=== PATIENT | female | born 1950 | race Caucasian/White ===

== ENCOUNTER → 2017-12-27 | Outpatient (CLI) | payer OTHER, BC ==
[~2017-12-27] MED LIST: ALPR-411 PO; AMOX500C3 PO; ASPI81TA28 PO; CHOL20007 PO; COD1000C PO; CRAN500C2 PO; HYDR25TA5 PO; IBUP-103 PO; LEVO75TA5 PO; LOSA1TAB38 PO; MAGN400T6 PO; MULT-663 PO; MULT-845 PO; NEBI10TA2 PO; ONDA4TAB46 PO; POTA8CAP6 PO; PREMARIN VAG PV; PROBCAP PO; RANI150T85 PO; SIMV20TA2 PO
[2017-12-27 13:37] LABS: BASO % 0.7 %; BASO ABS # 0.04 K/uL (0-0.2); EOS % 3.1 %; EOS ABS # 0.19 K/uL (0-0.5); HEMATOCRIT 41.1 % (37-47); HEMOGLOBIN 14.1 g/dL (12.0-16.0); IG# 0.02 K/uL (0.00-0.02); LYMPH % 33.1 %; LYMPH ABS # 2.02 K/uL (1.2-3.4); MEAN CORPUSCULAR HEMOGLOBIN 30.5 pg (25-34); MEAN CORPUSCULAR HGB CONC 34.3 g/dl (32-36); MEAN PLATELET VOLUME 11.1 fL (7.4-10.4); MONO % 6.4 %; MONO ABS # 0.39 K/uL (0.11-0.59); NEUT % 56.4 %; NEUT ABS # 3.44 K/uL (1.4-6.5); PLATELET COUNT 178 K/uL (130-400); RED CELL DISTRIBUTION WIDTH SD 41.3 fL (36.4-46.3)
[2017-12-27 13:43] LABS: PTT PATIENT 24.2 SECONDS (21.0-31.0)
--- NOTE | 2017-12-27 13:55 | DIAGNOSTIC IMAGING REPORT ---
TWO VIEW CHEST CLINICAL HISTORY: Preoperative examination. FINDINGS: PA and lateral chest radiographs are obtained. No prior studies are available for comparison at the time of dictation. The patient is status post midline sternotomy. The heart is top normal for projection. The pulmonary vasculature is noncongested. The lungs and pleural spaces are clear. There is no pneumothorax. The bony thorax appears intact. Surgical clips are seen in the upper abdomen. IMPRESSION: No active disease in the chest. Electronically signed by: Jesus Pepper M.D. 12/27/2017 1:53 PM Dictated Date/Time: 12/27/2017 1:51 PM
[2017-12-27 14:03] LABS: ALBUMIN 3.9 gm/dl (3.4-5.0); BLOOD UREA NITROGEN 27 mg/dl (7-18); CALCIUM 9.1 mg/dl (8.5-10.1); CARBON DIOXIDE 29 mmol/L (21-32); CREATININE 0.84 mg/dl (0.60-1.20); GLUCOSE 96 mg/dl (70-99); POTASSIUM 3.5 mmol/L (3.5-5.1); SODIUM 141 mmol/L (136-145)
[2017-12-27 14:40] LABS: HEMOGLOBIN A1C 5.8 % (4.5-5.6)
== END | disposition home or self-care (01) ==
LOC: C.CPL 12:04
PROVIDERS: ATTEND Orthopaedic Surgery
DX: Z01.810 Encounter for preprocedural cardiovascular examination (principal); Z01.811 Encounter for preprocedural respiratory examination; Z01.812 Encounter for preprocedural laboratory examination

== ENCOUNTER 2023-10-13 05:05 | Observation (INO) ==
--- NOTE | 2023-09-07 15:49 | PAT Medication Instructions ---
Medication Instructions Date of Service September 07, 2023 Home Medications Medication Instructions Recorded ondansetron HCl 4 mg tablet 8 mg (2 x 4 mg) PO UD PRN Nausea 02/02/18 (Zofran) And Vomiting #20 tabs Lactobacills gasseri-Bifidobac bifidum,longum 1.5 billion cell capsule (Landpoint) 1 cap PO HS alprazolam 0.5 mg tablet 0.5 - 1 mg PO HS PRN Insomnia amoxicillin 500 mg tablet 500 mg PO UD PRN DENTAL WORK 10 days calcium citrate 250 mg calcium-vitamin D3 5 mcg (200 unit) tablet (Citracal Regular) 2 tab PO BID cholecalciferol (vitamin D3) 125 mcg (5,000 unit) tablet (Vitamin D3) 5,000 unit PO HS hydrochlorothiazide 25 mg tablet 1 tab PO QAM levothyroxine 75 mcg tablet 75 mcg PO QAM losartan 100 mg tablet 100 mg PO QAM magnesium oxide 400 mg PO HS potassium chloride 8 mEq capsule,extended release 8 meq PO BID simvastatin 20 mg tablet 20 mg PO QPM ondansetron HCl 4 mg tablet (Zofran) 8 mg (2 x 4 mg) PO UD PRN Nausea And Vomiting Magnesium Breakthrough 1 tab PO HS acetaminophen 500 mg tablet (Pain Reliever (acetaminophen)) 1,000 mg PO Q6 PRN Pain apixaban 5 mg tablet (Eliquis) 5 mg PO BID cranberry 500 mg capsule 500 mg PO QAM hcdakpcupkrh-pmoqndmx-rcfpjx tablet 1 tab PO HS nebivolol 20 mg tablet (Bystolic) 20 mg PO QAM nitrofurantoin macrocrystal 50 mg capsule (Macrodantin) 50 mg PO QAM spironolactone 25 mg tablet 12.5 mg PO HS Continue as directed amoxicillin 500 mg tablet 500 mg PO UD PRN DENTAL WORK (if needed) nitrofurantoin macrocrystal 50 mg capsule (Macrodantin) 50 mg PO QAM ASK your prescriber and surgeon apixaban 5 mg tablet (Eliquis) 5 mg PO BID (in order to get spinal anesthesia- will need to hold Eliquis/apixaban at least 72 hours prior to surgery) STOP taking 2 weeks before surgery cranberry 500 mg capsule 500 mg PO QAM DO NOT take the morning of surgery calcium citrate 250 mg calcium-vitamin D3 5 mcg (200 unit) tablet (Citracal Regular) 2 tab PO BID hydrochlorothiazide 25 mg tablet 1 tab PO QAM losartan 100 mg tablet 100 mg PO QAM potassium chloride 8 mEq capsule,extended release 8 meq PO BID Take morning of surgery With a small sip of water, OTHERWISE NOTHING TO EAT OR DRINK AFTER MIDNIGHT: levothyroxine 75 mcg tablet 75 mcg PO QAM ondansetron HCl 4 mg tablet (Zofran) 8 mg (2 x 4 mg) PO UD PRN Nausea And Vomiting (if needed) acetaminophen 500 mg tablet (Pain Reliever (acetaminophen)) 1,000 mg PO Q6 PRN Pain (if needed) nebivolol 20 mg tablet (Bystolic) 20 mg PO QAM Take evening before surgery Lactobacills gasseri-Bifidobac bifidum,longum 1.5 billion cell capsule (Landpoint) 1 cap PO HS alprazolam 0.5 mg tablet 0.5 - 1 mg PO HS PRN Insomnia (if needed) calcium citrate 250 mg calcium-vitamin D3 5 mcg (200 unit) tablet (Citracal Regular) 2 tab PO BID cholecalciferol (vitamin D3) 125 mcg (5,000 unit) tablet (Vitamin D3) 5,000 unit PO HS magnesium oxide 400 mg PO HS potassium chloride 8 mEq capsule,extended release 8 meq PO BID simvastatin 20 mg tablet 20 mg PO QPM ondansetron HCl 4 mg tablet (Zofran) 8 mg (2 x 4 mg) PO UD PRN Nausea And Vomiting (if needed) Magnesium Breakthrough 1 tab PO HS acetaminophen 500 mg tablet (Pain Reliever (acetaminophen)) 1,000 mg PO Q6 PRN Pain (if needed) hsxgqqracrnw-ytrjaruy-gikvqc tablet 1 tab PO HS spironolactone 25 mg tablet 12.5 mg PO HS Other Notes If you have any questions please call us at [phone] or [phone] or [phone] or [phone]
--- NOTE | 2023-09-13 11:04 | Anesthesiology Consultation ---
Date of Service September 13, 2023 Assessment & Plan (1) Encounter for pre-operative examination: Plan - will await final report of 14 day cardiac event monitor and cardiology clearance. Optimization form to be faxed to [facility]. - cardiology office visit 09/07/23: "...follow up of atrial fibrillation. Feels more short of breath with going up hill and is wondering if it is because she is in atrial fibrillation...Obtain monitor to determine if rate is controlled...should have sleep study to rule out sleep apnea...Could consider elective cardioversion but she would need to be on Eliquis for 3 weeks prior and 3 weeks after...plans on having knee replacement on October 12..." - Outpatient joint pathway: Per surgeon, patient and her , plan for outpatient joint program. Upon review of chart and discussion with Dr. Villeda, he advised patient remain overnight and is not a recommended candidate for same day joint. Patient and surgeon's office made aware. Patient verbalized understanding and denied questions or concerns. Chart Review Chart Review: Pending: Refer to Additional Notes / Consult section and Patient seen in Pre Admission Testing Teaching & Discussion Pre-Anesthesia Teaching/Discussion Notes: Instructed NPO after midnight before surgery, except medications with 15 cc of water. Medication instructions provided according to the PAT guidelines. History Surgery Operation Date: 10/13/23 07:00 Proposed Procedures p OP: Left Total Knee Arthroplasty, - Baldev Delgado DO s Right Knee Pes Anserine Cortisone Injection - Baldev Delgado DO Height/Weight Height: 5 ft 5.5 in Weight: 70.5 kg Allergies Allergy/AdvReac Type Severity Reaction Status Date / Time fentanyl Allergy Intermediate DEEP Verified 09/07/23 11:52 sedation, severe difficulty waking after receiving med adhesive Allergy Mild band Verified 09/13/23 11:13 aids-rash and blistering morphine AdvReac Intermediate nausea and Verified 09/13/23 11:13 vomiting promethazine [From Phenergan] AdvReac Intermediate drowsiness Verified 09/13/23 11:35 hydrocodone AdvReac Mild nausea and Verified 09/13/23 11:13 vomiting oxycodone AdvReac Mild nausea and Verified 09/13/23 11:13 vomiting Medications Home Medications Medication Instructions Recorded Confirmed Last Taken Lactobacills gasseri-Bifidobac 1 cap PO HS ##0 12/22/17 09/07/23 02/01/18 06:00 bifidum,longum 1.5 billion cell 0ne capsule capsule (panpan) alprazolam 0.5 mg tablet 0.5 - 1 mg PO HS PRN Insomnia #0 12/22/17 09/07/23 02/01/18 08:30 tabs 1 mg po amoxicillin 500 mg tablet 500 mg PO UD PRN DENTAL WORK 10 12/22/17 09/07/23 Unknown days #0 caps calcium citrate 250 mg 2 tab PO BID ##0 12/22/17 09/07/23 01/26/18 22:00 calcium-vitamin D3 5 mcg (200 unit) tablet (Citracal Regular) cholecalciferol (vitamin D3) 125 5,000 unit PO HS 90 days #0 tabs 12/22/17 09/07/23 Unknown mcg (5,000 unit) tablet (Vitamin D3) hydrochlorothiazide 25 mg tablet 1 tab PO QAM ##0 12/22/17 09/07/23 01/31/18 08:00 25 mg po levothyroxine 75 mcg tablet 75 mcg PO QAM 90 days #90 tabs 12/22/17 09/07/23 02/01/18 06:00 75 mcg losartan 100 mg tablet 100 mg PO QAM #0 tabs 12/22/17 09/07/23 01/31/18 08:00 100 mg po magnesium oxide 400 mg PO HS #0 tabs 12/22/17 09/07/23 01/26/18 08:00 400 mg potassium chloride 8 mEq 8 meq PO BID #0 caps 12/22/17 09/07/23 01/27/18 08:00 capsule,extended release 8 meq simvastatin 20 mg tablet 20 mg PO QPM #0 tabs 12/22/17 09/07/23 01/31/18 22:00 20 mg po ondansetron HCl 4 mg tablet 8 mg (2 x 4 mg) PO UD PRN Nausea 02/02/18 09/07/23 Unknown (Zofran) And Vomiting #20 tabs Magnesium Breakthrough 1 tab PO HS 09/07/23 09/07/23 Unknown acetaminophen 500 mg tablet (Pain 1,000 mg PO Q6 PRN Pain 09/07/23 09/07/23 Unknown Reliever (acetaminophen)) apixaban 5 mg tablet (Eliquis) 5 mg PO BID 09/07/23 09/07/23 Unknown cranberry 500 mg capsule 500 mg PO QAM 09/07/23 09/07/23 Unknown caluiaglzmop-trisjafc-urdfhn tablet 1 tab PO HS 09/07/23 09/07/23 Unknown nebivolol 20 mg tablet (Bystolic) 20 mg PO QAM 09/07/23 09/07/23 Unknown nitrofurantoin macrocrystal 50 mg 50 mg PO QAM 09/07/23 09/07/23 Unknown capsule (Macrodantin) spironolactone 25 mg tablet 12.5 mg PO HS 09/07/23 09/07/23 Unknown Past Medical History Medical History (Updated 09/13/23 @ 12:37 by Gudelia Sanabria PA-C) Ascending aorta dilation 3.9 cm per [place] cardiology records Atrial fibrillation per pt is currently in a fib--reason for eliquid bid--follows with Dr. Glenis Barrios in [place] Frequent UTI reason for macrodantin Heart palpitations chronic-denies change or worsening-denies associated dizziness/lightheadedness, chest discomfort or dyspnea History of anesthesia reaction pt states she received Fentanyl (unsure how much) for cardioversion and they had difficulty waking her after, pt states they had to give her 2 doses of Narcan and still had difficulty waking up "they had to take me to the emergency room until I woke up at 530pm" History of benign breast biopsy History of hiatal hernia (07/25/12) s/p Ashtyn fundoplication History of Holter monitoring currently wearing---applied 09/07/23 @ cardiology office starting for 14 days History of kidney stones last episode > 20 years ago Hx of migraines Hyperlipidemia Hypertension controlled, stable per pt Hypothyroidism Lesion of adrenal gland stable "adrenal gland benign lesions" on 2022 CT abdomen pelvis Liver cyst subcentimeter liver cysts, stable per 2022 CT abdomen pelvis Nausea and vomiting after administration of anesthetic agent denies needing scop patch On anticoagulant therapy eliquis bid Valvular heart disease h/o severe mitral valve regurgitation, mitral valve repair with ring, 2005 Patient denies h/o stroke, seizures, heart attack, heart failure, DM, blood clots/DVTs or blood transfusions. Exercise / Class Metabolic Activity II 4-5 Yardwork/Stairs/Walk up hill (SOB with 1 FOS ongoing for several years since cardiac ablation-denies change or worsening-denies chest discomfort) Past Family History Family History Other No family history of adverse response to anesthesia Past Surgical History Surgical History History of adenoidectomy (1957) History of appendectomy unclear-was told was removed during [facility] in 1979 however was documented as visualized on 09/2022 CT abdomen pelvis History of arthroscopy (2006) right knee, partial lateral meniscectomy, partial synovectomy History of bilateral breast reduction surgery (2008) History of bilateral tubal ligation (1977) 2002, 2011 and 2021 History of bladder surgery (2007) sling History of bunionectomy (08/2015) right great toe History of cardiac cath 2005-denies stents. PRIOR TO MVP REPAIR. DIAGNOSTIC ONLY. [facility] History of cardiac radiofrequency ablation x2 @ [facility] --03/14/2020 and 10/07/21 History of cardioversion x2--unsuccessfull 07/22/20 and 04/29/22 @ [place], [place] History of colonoscopy (2020) multiple History of cystoscopy (08/14/21) for recurrent UTIs per pt History of esophagogastroduodenoscopy (EGD) (2020) History of extraction of renal calculus History of heart valve repair 2005- [facility]. MITRAL VALVE REPAIR. History of hysterectomy History of Ashtyn fundoplication (2012) History of surgery (10/01/18) left middle finger "giant cell" removed History of tonsillectomy (1957) History of total right knee replacement (02/01/18) 01/2018 @ [facility] Past Anesthesia History No Family Hx of Anesthesia Complications and Other (see above) History of PONV History of PONV (needs IV medication, denies needing scop patch) and Hx of Motion Sickness (only on boats) Social History Smoking Status: Never smoker Do You Dip or Chew Tobacco: No Hx Alcohol Use: Yes Alcohol type: wine alcohol intake frequency: holidays/special occasions only Hx Substance Use: No substance use type: does not use Review of Systems Patient denies chest pain, snoring, witnessed apneas, fever, chills, cough, or wheezing. Physical Exam Vital Signs Vitals BP 137/82 P 87 TEMP 97.9 SP02 99% on RA RESP 18 Physical Patient resting comfortably in chair in no acute distress, alert and oriented, responding appropriately throughout visit Full cervical extension range of motion without pain TMD 3.5 finger breadths Mallampati Score 2 Dentition: intact, denies chipped or loose teeth, caps/crowns, implants or bridges Lungs: normal respiratory effort. Good air movement, clear throughout to auscultation, no adventitious breath sounds Cardiac: irregularly irregular rhythm, no murmurs noted Carotid arteries: negative bruit bilat Lab Results Anesthesia Preop Results Results Anesthesia Widget: WBC 7.05 K/ul (4.8-10.8) 09/13/23 Hgb 14.1 g/dl (12.0-16.0) 09/13/23 Hct 42.2 % (37.0-47.0) 09/13/23 Plt 227 K/uL (130-400) 09/13/23 Na 140 mmol/L (136-145) 09/13/23 K 4.0 mmol/L (3.5-5.1) 09/13/23 Cl 103 mmol/L (98-107) 09/13/23 CO2 30 mmol/L (21-32) 09/13/23 BUN 20 mg/dl (6-23) 09/13/23 Creat 0.85 mg/dl (0.6-1.2) 09/13/23 Glucose Level 103 mg/dl (70-99(Fasting)) H 09/13/23 PT 11.2 Seconds (9.0-12.0) 09/13/23 PTT 27 Seconds (21-31) 09/13/23 INR 1.0 (0.9-1.1) 09/13/23 HA1c 6.0 % (4.5-5.6) H 09/13/23 Urine Color Yellow 09/13/23 Urine Appearance Clear (Clear) 09/13/23 Urine pH 7.0 (4.5-7.5) 09/13/23 Urine Specific [place] 1.010 (1.000-1.030) 09/13/23 Urine Protein Negative (Negative) 09/13/23 Urine Glucose (UA) Negative (Negative) 09/13/23 Urine Ketones Negative (Negative) 09/13/23 Urine Blood Negative (Negative) 09/13/23 Urine Nitrite Negative (Negative) 09/13/23 Urine Bilirubin Negative (Negative) 09/13/23 Urine Urobilinogen Negative (Negative) 09/13/23 Urine Leukocyte Esterase Negative (Negative) 09/13/23 Blood Type B Positive 09/13/23 Antibody Screen NEGATIVE 09/13/23 Testing Electrocardiogram Date: 09/07/23 Afib, rate 88 bpm RSR V1-nondiagnostic Chest X-Ray Date: 09/13/23 No acute process. Stress Test Date: 12/10/22 Lexiscan MPHR 55% Normal radiotracer uptake across all myocardial segments during both rest and stress imaging. ECG during Lexiscan infusion demonstrates no significant ST-segment deviations or arrhythmias. EF 74%
--- NOTE | 2023-09-20 12:20 | History & Physical Report ---
Date of Service September 20, 2023 date of surgery: 10/13/23 Procedure: Left Total Knee Arthroplasty, Right Knee Pes Anserine Cortisone Injection Surgeon: Baldev Delgado, DO Assessment & Plan (1) Arthritis of knee, left: Plan: Risk and benefits of the procedure were discussed, she would like to proceed with a left total knee arthroplasty at [facility], will also give a right knee cortisone injection into the pes bursa at time of surgery. Will plan on overnight stay in the hospital with discharge home with home health nursing physical therapy. Will resume her anticoagulants beginning postop day #1. Follow-up in the office 2 weeks after her surgery or sooner if she is having issues, she otherwise has no other questions or concerns The risks and benefits have been discussed including, but not limited to, risk of infection, nerve injury, stiffness, loss of motion, failure to improve, etc. Reasonable outcomes and options of treatment were discussed. An explanation of appropriate alternatives to the procedure that may be advantageous were discussed and their risks and benefits, as well as the risks and benefits of not proceeding with treatment. I offered to answer any additional inquiries concerning the treatment involved. All the patient's questions were answered. The patient is agreeable, understanding of the treatment plan and alternatives, and wishes to proceed with the treatment plan. Please note the above document was generated using voice recognition software. It may contain grammatical, syntax or spelling errors. Any formal questions or concerns about the content, text or information contained within the body of this dictation should be directly addressed to the provider for clarification (2) Pes anserinus bursitis of right knee: History of Present Illness Chief Complaint: left knee pain, Right knee pain Primary Care Provider: Jesus Prince Andie is a 73-year-old female who presented for preop evaluation prior to upcoming left total knee replacement and right knee injection. She has longstanding history of left knee pain and is failed conservative measures including cortisone injection as well as viscosupplementation. Her pain is now affecting her daily activities after discussing further care like to proceed with a left total knee replacement. She also has a history of right knee replacement approximately 6 years ago and has had pain located to the pes bursa and would like to proceed with a cortisone injection to the right knee pes bursa. She is unable to take anti-inflammatories secondary to anticoagulation use Allergies Allergy/AdvReac Type Severity Reaction Status Date / Time fentanyl Allergy Intermediate DEEP Verified 09/07/23 11:52 sedation, severe difficulty waking after receiving med adhesive Allergy Mild band Verified 09/13/23 11:13 aids-rash and blistering morphine AdvReac Intermediate nausea and Verified 09/13/23 11:13 vomiting promethazine [From Phenergan] AdvReac Intermediate drowsiness Verified 09/13/23 11:35 hydrocodone AdvReac Mild nausea and Verified 09/13/23 11:13 vomiting oxycodone AdvReac Mild nausea and Verified 09/13/23 11:13 vomiting Home Medications Medication Instructions Recorded Confirmed Type Lactobacills gasseri-Bifidobac 1 cap PO HS ##0 12/22/17 09/07/23 History bifidum,longum 1.5 billion cell capsule (COMARCO) alprazolam 0.5 mg tablet 0.5 - 1 mg PO HS PRN Insomnia #0 12/22/17 09/07/23 History tabs amoxicillin 500 mg tablet 500 mg PO UD PRN DENTAL WORK 10 12/22/17 09/07/23 History days #0 caps calcium citrate 250 mg 2 tab PO BID ##0 12/22/17 09/07/23 History calcium-vitamin D3 5 mcg (200 unit) tablet (Citracal Regular) cholecalciferol (vitamin D3) 125 5,000 unit PO HS 90 days #0 tabs 12/22/17 09/07/23 History mcg (5,000 unit) tablet (Vitamin D3) hydrochlorothiazide 25 mg tablet 1 tab PO QAM ##0 12/22/17 09/07/23 History levothyroxine 75 mcg tablet 75 mcg PO QAM 90 days #90 tabs 12/22/17 09/07/23 History losartan 100 mg tablet 100 mg PO QAM #0 tabs 12/22/17 09/07/23 History magnesium oxide 400 mg PO HS #0 tabs 12/22/17 09/07/23 History potassium chloride 8 mEq 8 meq PO BID #0 caps 12/22/17 09/07/23 History capsule,extended release simvastatin 20 mg tablet 20 mg PO QPM #0 tabs 12/22/17 09/07/23 History ondansetron HCl 4 mg tablet 8 mg (2 x 4 mg) PO UD PRN Nausea 02/02/18 09/07/23 Rx (Zofran) And Vomiting #20 tabs Magnesium Breakthrough 1 tab PO HS 09/07/23 09/07/23 History acetaminophen 500 mg tablet (Pain 1,000 mg PO Q6 PRN Pain 09/07/23 09/07/23 History Reliever (acetaminophen)) apixaban 5 mg tablet (Eliquis) 5 mg PO BID 09/07/23 09/07/23 History cranberry 500 mg capsule 500 mg PO QAM 09/07/23 09/07/23 History llpncacxqrpp-qfqjakoc-qtzguz tablet 1 tab PO HS 09/07/23 09/07/23 History nebivolol 20 mg tablet (Bystolic) 20 mg PO QAM 09/07/23 09/07/23 History nitrofurantoin macrocrystal 50 mg 50 mg PO QAM 09/07/23 09/07/23 History capsule (Macrodantin) spironolactone 25 mg tablet 12.5 mg PO HS 09/07/23 09/07/23 History Past Med/Surg History Medical History Ascending aorta dilation 3.9 cm per [place] cardiology records History of benign breast biopsy Lesion of adrenal gland stable "adrenal gland benign lesions" on 2022 CT abdomen pelvis Liver cyst subcentimeter liver cysts, stable per 2022 CT abdomen pelvis Hypertension controlled, stable per pt Hyperlipidemia On anticoagulant therapy eliquis bid Nausea and vomiting after administration of anesthetic agent denies needing scop patch History of anesthesia reaction pt states she received Fentanyl (unsure how much) for cardioversion and they had difficulty waking her after, pt states they had to give her 2 doses of Narcan and still had difficulty waking up "they had to take me to the emergency room until I woke up at 530pm" History of Holter monitoring currently wearing---applied 09/07/23 @ cardiology office starting for 14 days Atrial fibrillation per pt is currently in a fib--reason for eliquid bid--follows with Dr. Glenis Barrios in [place] Frequent UTI reason for macrodantin Heart palpitations chronic-denies change or worsening-denies associated dizziness/lightheadedness, chest discomfort or dyspnea Hx of migraines History of hiatal hernia (07/25/12) s/p Ashtyn fundoplication History of kidney stones last episode > 20 years ago Hypothyroidism Valvular heart disease h/o severe mitral valve regurgitation, mitral valve repair with ring, 2005 Surgical History History of cystoscopy (08/14/21) for recurrent UTIs per pt History of bilateral breast reduction surgery (2008) History of bladder surgery (2007) sling History of total right knee replacement (02/01/18) 01/2018 @ [facility] History of cardioversion x2--unsuccessfull 07/22/20 and 04/29/22 @ [place], [place] History of cardiac radiofrequency ablation x2 @ [facility] --03/14/2020 and 10/07/21 History of surgery (10/01/18) left middle finger "giant cell" removed History of hysterectomy History of bilateral tubal ligation (1977) 2002, 2011 and 2021 History of bunionectomy (08/2015) right great toe History of arthroscopy (2006) right knee, partial lateral meniscectomy, partial synovectomy History of extraction of renal calculus History of Ashtyn fundoplication (2012) History of esophagogastroduodenoscopy (EGD) (2020) History of colonoscopy (2020) multiple History of appendectomy unclear-was told was removed during [facility] in 1979 however was documented as visualized on 09/2022 CT abdomen pelvis History of tonsillectomy (1957) History of adenoidectomy (1957) History of heart valve repair 2005- [facility]. MITRAL VALVE REPAIR. History of cardiac cath 2005-denies stents. PRIOR TO MVP REPAIR. DIAGNOSTIC ONLY. 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 Required: No Beliefs That Will Affect Care: None Current Living Situation: Significant Other Feels Safe at Home: Yes Assistive Devices: None Review of Systems Review of Systems: All systems reviewed & are unremarkable except as noted in HPI & below Constitutional: no fever, no chills and no sweats Respiratory: no cough and no dyspnea Cardiovascular: no chest pain, no dyspnea and no orthopnea Gastrointestinal: no abdominal pain, no nausea and no vomiting Musculoskeletal: as per Subjective / HPI Physical Exam Physical Exam: HT: 5ft 5in WT: 70.5kg Constitutional: WD/WN, vitals as above no acute distress Respiratory: normal respiratory effort, lungs clear to auscultation no respiratory distress, no labored breathing and does not use accessory muscles Cardiovascular: Rate/Rhythm: + irregularly irregular Gastrointestinal (Abdomen): normal bowel sounds, soft, nontender, no hepato splenomegaly Musculoskeletal: Knee: + knee abnormal to inspection (LEFT KNEE), + effusion (+1 effusion), + limited ROM of knee (ROM 0/3/110), + knee ROM with crepitation, + joint line tenderness (medial joint line) and + Shola's sign positive; no deformity, no skin erythema, no ecchymosis, no valgus laxity, no varus laxity, anterior drawer test negative, Sb's sign negative and pivot shift test negative Right Knee: well healed surgical incision, tenderness along pes bursa Results & Data Results & Data Diagnostic Findings Left Knee: 4 views of the left knee show degenerative changes tricompartmentally with joint space narrowing osteophyte formation subchondral sclerosis. No acute findings noted
[2023-10-13] MEDS: LR 500ML BOLUS, THEN 15ML/HR IV SCH (06:00)
[2023-10-13] MEDS ORDERED: ROPIVACAINE 0.5% 5 MG/ML 30 ML VIAL ONE (06:12)
[2023-10-13] MEDS: LR 60ML/HR IV SCH (06:24)
[2023-10-13] MEDS: GABAPENTIN 300 MG CAP PO SCH (06:25)
[2023-10-13] MEDS: FAMOTIDINE 20 MG TAB PO SCH (06:25)
[2023-10-13] MEDS: METOCLOPRAMIDE HCL 10 MG TABLET PO SCH (06:25)
[2023-10-13] MEDS: ACETAMINOPHEN 500 MG TAB PO SCH ×2 (06:25→13:03)
[2023-10-13] MEDS: CeleBREX 200 MG CAP PO SCH (06:25)
[2023-10-13] MEDS: dexAMETHasone**PF** 10 MG/ML VIAL IV SCH (06:26)
[2023-10-13] MEDS ORDERED: MIDAZOLAM HCL 1 MG/ML 2ML VIAL ONE (06:36)
[2023-10-13] MEDS ORDERED: DROPERIDOL 5 MG/2 ML VIAL IV PRN (06:48)
[2023-10-13] MEDS ORDERED: KETOROLAC 30 MG/ML VIAL IV PRN (06:48)
[2023-10-13] MEDS ORDERED: LABETALOL HCL IV 5 MG/ML 20ML IV PRN (06:48)
[2023-10-13] MEDS ORDERED: ATROPINE SULFATE 0.1 MG/ML 10ML SYR IV PRN (06:48)
[2023-10-13] MEDS ORDERED: ONDANSETRON INJ 2 MG/ML 2 ML VIAL IV PRN (06:48)
--- NOTE | 2023-10-13 06:57 | History & Physical Bridge Note ---
Date of Service October 13, 2023 History & Physical Bridge Note I have examined the patient, reviewed the History & Physical and in the interval since the performance of the History & Physical I have noted the following changes of clinical significance: no changes noted
[2023-10-13] MEDS: TRANEXAMIC ACID 1,000 MG **IV Pre-op IV SCH (07:02)
[2023-10-13] MEDS: ceFAZolin 2000MG 2,000 MG/15 ML SYR IV SCH (07:13)
[2023-10-13] MEDS ORDERED: fentaNYL citrate PF 100 MCG/2 ML VIAL ONE ×2 (07:16→08:28)
[2023-10-13] MEDS ORDERED: DROPERIDOL 5 MG/2 ML VIAL ONE (07:19)
[2023-10-13] MEDS: BUPIVACAINE 0.25% PF 30 ML VIAL ONE (07:21)
[2023-10-13] MEDS: LIDOCAINE 1% LOCAL 20 ML VIAL ONE (07:21)
[2023-10-13] MEDS: methylPREDNISolone acetate 80 MG/ML VIAL ONE (07:21)
--- NOTE | 2023-10-13 08:11 | Operative Report ---
Post Operative Report Pre & Post Diagnosis Operation Date: 10/13/23 07:00 Pre-Op Diagnosis: Left Knee Osteoarthritis, Right Knee Pez anserine bursitis Post-Op Diagnosis: Left Knee Osteoarthritis, Right Knee Pez anserine bursitis I identified the patient and participated in the time-out.: Yes Procedure Operation Date: 10/13/23 07:00 Actual Procedures p Left Total Knee Arthroplasty,Utilizing [employer] journey 2 patient- matched total knee arthroplasty size femur 5 tibia 3 poly 13 patella 29 oval(Left) - DO pushpa Marley Right Knee Pes Anserine InjectionWith 1 cc quarter percent plain Marcaine and 1 cc 1% lidocaine 80 mg Depo-Medrol(Right) - Baldev Delgado DO Surgeon Baldev Delgado DO [facility] Burt BOLANOS Estimated Blood Loss 5 Findings Consistent with Post-Op Diagnosis Patient presents with severe end-stage tricompartmental degenerative joint disease not on the responded to to conservative management with eburnated [id number] marginal osteophytes subchondral cystic changes eburnated [id number]-[id number] and moderate to large effusion Specimens Bone and cartilage Drains Medium bore Hemovac Anesthesia Type MAC Spinal Regional Complications none Disposition Accompanied Patient To Recovery: No Disposition: Recovery Room Indications Patient presents with severe end-stage tricompartmental DJD after failed attem pted conservative management getting physical therapy anti-inflammatories relative rest activity modification corticosteroid injection viscosupplementation Description of Procedure After proper prepping and draping of the left lower extremity anterior midline incision was made over the region of the extensor extensor mechanism after meticulous hemostasis was obtained and maintained in subcutaneous tissues a medial parapatellar incision was made The patella was subluxed lateralward the medial lateral gutter were cleaned from any hypertrophic synovitis and scar tissue of the distal femoral block was placed and the distal femoral osteotomy cut was made subsequently the chamfers anterior and posterior osteotomy cuts were made utilizing the 4-in-1 block the tibia was subsequently subluxed anteriorward medial and ateral meniscal remnants were excised in their entirety remnants of the anterior and posterior cruciate ligaments were excised in their entirety excellent exposure of the proximal tibia was obtained the tibial osteotomy guide was placed on the proximal tibial osteotomy cut was made once again the knee was irrigated with copious amounts of sterile saline solution the patella was subsequently everted lateralward thickened scar tissue around the patella was removed the patella was subsequently cut utilizing a freehand technique and was drilled prepared for final preparation and placement of patella socially flexion-extension gaps were checked and the equal and symmetric trials were placed to the appropriate femoral and tibial trials with poly-spacer being placed for equal flexion and extension gaps and full range of motion including extension to 0 and flexion to 140 the trial components after having been taken to recovery range of motion was subsequently removed meticulous hemostasis was obtained and maintained subsequently a knee block injection of joint cocktail including ropivacaine 0.5% 150 mg. Bupivacaine 0.5% epinephrine 1-200,030 mL's toradol 30 mg dexamethasone 4 mg ketamine 10 mg clonidine 100 micrograms normal saline solution 30 mg was infiltrated into the soft tissues of the posterior knee medial lateral gutters and periosteal synovium special attention was paid to protect neurovascular structures at all times subsequently trial components having been removed the knee was irrigated with sterile saline solution. debris was removed the proximal tibia was subsequently prepared and was made ready for the placement of the tibial component tibial component was also cemented and tamped into position the femoral component was subsequently placed and cemented in the position the patellar component was subsequently cemented in position because hemostasis once again obtained and maintained wound having been thoroughly irrigated with debridement and debridement lavage was performed as well as a medial parapatellar incision closed with #1 Vicryl in interrupted fashion subcutaneous was closed with #2 Vicryl skin was closed with skin clips. PA-C was necessary for prepping and drapping as well as wound closure of deep fascia Sub cutaneous tissue and skin and was necessary for the case. A sterile compressive dressing was placed patient was taken to recovery in stable condition of report dictated by Danny I attest to the content of the Intraoperative Record and any orders documented therein. Any exceptions are noted below.Due to the complex nature of the procedure, the entire surgery was performed with the operational assistance of LUIS MIGUEL Kelly. The health education assistant, under direct supervision, was involved in the actual performance of all aspects of the surgical procedure including hemostasis, tissue retraction and incision, instrument management, patient positioning, and wound closure.The right knee pes bursa and that was injected with a mixture of 1 cc of Marcaine quarter percent 1 cc 1% plain lidocaine and 80 mg Depo-Medrol into the Pez anserine bursa under sterile conditions I attest to the content of the Intraoperative Record and any orders documented therein. Any exceptions are noted below.
[2023-10-13] MEDS: ROPIVACAINE 0.5% HCL/PF 246 MG, Ketorolac (*for OR use only*) 30 MG, EPINEPHrine 30MG/3... INFIL SCH (08:14)
[2023-10-13] MEDS: ORTHO JOINT ANESTHETIC ONE (08:15)
[2023-10-13] MEDS ORDERED: SUGAMMADEX SODIUM 200 MG/2 ML VIAL IV ONE (08:15)
[2023-10-13] MEDS: TRANEXAMIC ACID 1,000 MG **IV Intra-op IV SCH (08:15)
[2023-10-13] MEDS ORDERED: KETOROLAC 30 MG/ML VIAL ONE (08:15)
[2023-10-13] MEDS ORDERED: PROPOFOL IV EMULSION 10 MG/ML 100 ML VIAL IV ONE (08:28)
[2023-10-13] MEDS ORDERED: MEPERIDINE HCL 25 MG/ML CARP/VIAL IV PRN (08:54)
[2023-10-13] MEDS: HYDROmorphone INJ 1 MG/ML SYRINGE IV PRN (09:15)
--- NOTE | 2023-10-13 10:16 | Anesthesiology Progress Note ---
Date of Service October 13, 2023 Anesthesia Post Procedure Vital Signs Vital Signs: Temp Pulse Pulse Resp BP Pulse Ox O2 Del Method 10/13/23 09:30 36.5 C 93 H 16 141/85 H 97 Room Air 10/13/23 09:25 36.5 C 88 14 135/90 99 Room Air 10/13/23 09:15 98 H 14 141/91 H 96 Oxymask 10/13/23 09:05 97 H 15 148/83 H 94 Oxymask 10/13/23 08:55 97 H 15 141/94 H 98 Oxymask 10/13/23 08:49 36.3 C L 86 12 144/72 H 94 Oxymask 10/13/23 05:59 36.4 C L 85 18 135/101 H 99 Room Air O2 Flow Rate 10/13/23 09:30 10/13/23 09:25 10/13/23 09:15 3 10/13/23 09:05 3 10/13/23 08:55 5 10/13/23 08:49 5 10/13/23 05:59 Transfer of Care Handoff Completed per policy Notes Mental Status: alert / awake / arousable Patient Amnestic to Procedure: Yes Nausea / Vomiting: adequately controlled Pain: adequately controlled Airway Patency, RR, SpO2: stable & adequate BP & HR: stable & adequate Hydration State: stable & adequate Anesthetic Complications: no major complications apparent
[2023-10-13] MEDS ORDERED: FLUMAZENIL 0.1 MG/1 ML 10 ML VIAL IV ONE (10:20)
[2023-10-13] MEDS ORDERED: bisacodyL 10 MG SUPP PR PRN (11:02)
[2023-10-13] MEDS ORDERED: diphenhydrAMINE Capsule 25 MG CAP PO PRN (11:02)
[2023-10-13] MEDS ORDERED: NALOXONE HCL 0.4 MG/1 ML VIAL/CARP IV PRN (11:02)
[2023-10-13] MEDS ORDERED: METOCLOPRAMIDE HCL INJ 5 MG/ML 2 ML VIAL IV PRN (11:02)
[2023-10-13] MEDS ORDERED: traMADol HCL 50 MG TABLET PO PRN (11:02)
[2023-10-13] MEDS ORDERED: MAGNESIUM HYDROXIDE SUSP 30 ML UDC PO PRN (11:02)
[2023-10-13] MEDS: SODIUM CHLORIDE 0.9% 1,000 ML IV SCH (11:20)
[2023-10-13] MEDS ORDERED: LEVOTHYROXINE SODIUM 75 MCG TABLET PO SCH (11:30)
[2023-10-13] MEDS: DOCUSATE SODIUM 100 MG CAP PO SCH (13:01)
[2023-10-13] MEDS: CALCIUM 600MG + VIT D 400 IU TAB PO SCH (13:01)
[2023-10-13] MEDS: MULTIVITAMIN TAB PO SCH (13:02)
--- NOTE | 2023-10-13 13:06 | XRay Report ---
XR knee LT 1 or 2V routine CLINICAL HISTORY: Postoperative evaluation. COMPARISON: None FINDINGS: Alignment of the total left knee arthroplasty is anatomic. There is no periprosthetic frac ture or unexpected radiopaque foreign body. There are skin tess and a surgical drain. IMPRESSION: Expected findings following total left knee arthroplasty. ACT 112: Negative or not required by law. Electronically signed by: Amos Espinoza M.D. 10/13/2023 1:04 PM
--- NOTE | 2023-10-13 13:11 | Hospitalist Consultation ---
Date of Consultation October 13, 2023 Assessment & Plan (1) Hypertension: (2) Hyperlipidemia: (3) Atrial fibrillation: (4) Hypothyroidism: Plan 73 yo female with h/o HTN, Afib, hyperlipidemia, hypothyroidism admitted for elective left knee arthroplasty, tolerated surgery well # left knee arthroplasty , PT, pain control , Eliquis on Day 1 after surgery # Afib, rate control , continue Metoprolol 100 mg bid, restart Eliquis as per ortho # HTN stable , continue home meds Losartan, HCTZ, Metoprolol # hyperlipidemia continue statins # hypothyroidism, continue Synthroid History of Present Illness Reason for Consultation: medical managment Requesting Physician: Baldev Delgado Attending Physician: Baldev Delgado, DO History of Present Illness &3 yo female with h/o OA, Afib, s/p ablation , on Eliquis, HTN, hyperlipidemia, hypothyroidism, ascending aorta dilation admitted for left knee arthroplasty, tolerated surgery well, reports minimal left knee pain,denies chest pain, SOB, palpitations, nausea, vomiting, abdominal pain, dysuria, constipation , buster ated lunch Allergies Allergy/AdvReac Type Severity Reaction Status Date / Time fentanyl Allergy Intermediate DEEP Verified 10/13/23 05:40 sedation, severe difficulty waking after receiving med adhesive Allergy Mild band Verified 10/13/23 05:40 aids-rash and blistering morphine AdvReac Intermediate nausea and Verified 10/13/23 05:40 vomiting promethazine [From Phenergan] AdvReac Intermediate drowsiness Verified 10/13/23 05:40 hydrocodone AdvReac Mild nausea and Verified 10/13/23 05:40 vomiting oxycodone AdvReac Mild nausea and Verified 10/13/23 05:40 vomiting Home Medications Medication Instructions Recorded Confirmed Type Lactobacills gasseri-Bifidobac 1 cap PO HS ##0 12/22/17 10/13/23 History bifidum,longum 1.5 billion cell capsule (AllergEase) alprazolam 0.5 mg tablet (Xanax) 0.5 - 1 mg PO HS PRN Insomnia #0 12/22/17 10/13/23 History tabs amoxicillin 500 mg tablet 500 mg PO UD PRN DENTAL WORK 10 12/22/17 10/13/23 History days #0 caps calcium citrate 250 mg 2 tab PO BID ##0 12/22/17 10/13/23 History calcium-vitamin D3 5 mcg (200 unit) tablet (Citracal Regular) cholecalciferol (vitamin D3) 125 5,000 unit PO HS 90 days #0 tabs 12/22/17 10/13/23 History mcg (5,000 unit) tablet (Vitamin D3) hydrochlorothiazide 25 mg tablet 1 tab PO QAM ##0 12/22/17 10/13/23 History levothyroxine 75 mcg tablet 75 mcg PO QAM 90 days #90 tabs 12/22/17 10/13/23 History losartan 100 mg tablet 100 mg PO QAM #0 tabs 12/22/17 10/13/23 History magnesium oxide 400 mg PO HS #0 tabs 12/22/17 10/13/23 History potassium chloride 8 mEq 8 meq PO BID #0 caps 12/22/17 10/13/23 History capsule,extended release simvastatin 20 mg tablet 20 mg PO QPM #0 tabs 12/22/17 10/13/23 History ondansetron HCl 4 mg tablet 8 mg (2 x 4 mg) PO UD PRN Nausea 02/02/18 10/13/23 Rx (Zofran) And Vomiting #20 tabs Magnesium Breakthrough 1 tab PO HS 09/07/23 10/13/23 History acetaminophen 500 mg tablet (Pain 1,000 mg PO Q6 PRN Pain 09/07/23 10/13/23 History Reliever (acetaminophen)) apixaban 5 mg tablet (Eliquis) 5 mg PO BID 09/07/23 10/13/23 History pjmfxcyxcpdg-nvhrrmqc-tuhkuz tablet 1 tab PO HS 09/07/23 10/13/23 History nebivolol 20 mg tablet (Bystolic) 20 mg PO QAM 09/07/23 10/13/23 History nitrofurantoin macrocrystal 50 mg 50 mg PO QAM 09/07/23 10/13/23 History capsule (Macrodantin) spironolactone 25 mg tablet 12.5 mg PO HS 09/07/23 10/13/23 History Patient History Medical History (Updated 10/13/23 @ 05:39 by Kylah Marie RN) Skin cancer (melanoma) new- right mid cristobal- removal Ascending aorta dilation 3.9 cm per [place] [facility] records History of benign breast biopsy Lesion of adrenal gland stable "adrenal gland benign lesions" on 2022 CT abdomen pelvis Liver cyst subcentimeter liver cysts, stable per 2022 CT abdomen pelvis Hypertension controlled, stable per pt Hyperlipidemia On anticoagulant therapy eliquis bid Nausea and vomiting after administration of anesthetic agent denies needing scop patch History of anesthesia reaction pt states she received Fentanyl (unsure how much) for cardioversion and they had difficulty waking her after, pt states they had to give her 2 doses of Narcan and still had difficulty waking up "they had to take me to the emergency room until I woke up at 530pm" History of Holter monitoring currently wearing---applied 09/07/23 @ cardiology office starting for 14 days Atrial fibrillation per pt is currently in a fib--reason for eliquid bid--follows with Dr. Glenis Barrios in [place] Frequent UTI reason for macrodantin Surgical History History of cystoscopy (08/14/21) for recurrent UTIs per pt History of bilateral breast reduction surgery (2008) History of bladder surgery (2007) sling History of cardioversion x2--unsuccessfull 07/22/20 and 04/29/22 @ [place], [place] History of cardiac radiofrequency ablation x2 @ [facility] --03/14/2020 and 10/07/21 History of surgery (10/01/18) left middle finger "giant cell" removed History of extraction of renal calculus History of Ashtyn fundoplication (2012) History of esophagogastroduodenoscopy (EGD) (2020) History of colonoscopy (2020) multiple History of appendectomy unclear-was told was removed during BENIG[facility] in 1979 however was documented as visualized on 09/2022 CT abdomen pelvis Family History Other No family history of adverse response to anesthesia Social History Smoking Status: Never smoker Second Hand Exposure: No; Do You Dip or Chew Tobacco: No; Tobacco Cessation Education Requested by Patient: No Hx Alcohol Use: Yes Alcohol type: wine Hx Substance Use: No Preferred Language: Slovenian Communication Ability: Effective 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: No Beliefs That Will Affect Care: None Current Living Situation: Significant Other Other Information That Helps Us Care for You: No Feels Safe at Home: Yes Safety Concerns: Feels Safe At This Time Assistive Devices: None Review of Systems Review of Systems: All systems reviewed & are unremarkable except as noted in HPI & below Physical Exam Physical Exam: head atraumatic, normocephalic, eyes sclera anicteric neck supple, no JVD chest CTA b/l Heart irregularly irregular, tachycardic abdomen soft, nt, nd, BS present extremities left knee dressed, pulses present, no cyanosis neuro AAO times 3 Results & Data Results & Data Vital Signs (Past 12 Hours) Vital Signs Temp Pulse Pulse Resp BP Pulse Ox O2 Del Method 10/13/23 12:58 36.6 C 90 16 113/71 94 Room Air 10/13/23 12:09 36.7 C 90 17 132/86 93 Room Air 10/13/23 11:01 36.6 C 89 16 136/84 92 Room Air 10/13/23 10:35 36.7 C 91 H 17 131/88 90 Room Air 10/13/23 09:30 36.5 C 93 H 16 141/85 H 97 Room Air 10/13/23 09:25 36.5 C 88 14 135/90 99 Room Air 10/13/23 09:15 98 H 14 141/91 H 96 Oxymask 10/13/23 09:05 97 H 15 148/83 H 94 Oxymask 10/13/23 08:55 97 H 15 141/94 H 98 Oxymask 10/13/23 08:49 36.3 C L 86 12 144/72 H 94 Oxymask 10/13/23 05:59 36.4 C L 85 18 135/101 H 99 Room Air O2 Flow Rate 10/13/23 12:58 10/13/23 12:09 10/13/23 11:01 10/13/23 10:35 10/13/23 09:30 10/13/23 09:25 10/13/23 09:15 3 10/13/23 09:05 3 10/13/23 08:55 5 10/13/23 08:49 5 10/13/23 05:59 Medications Administered Current Inpatient Medications Acetaminophen (Acetaminophen 500 Mg Tab) 1,000 mg PO Q8 ELIE Stop: 11/12/23 13:59 Last Admin: 10/13/23 13:03 Dose: 1,000 mg Alprazolam (Alprazolam 0.5 Mg Tablet) 0.5 mg PO HS PRN PRN Reason: Insomnia Stop: 11/12/23 11:01 Apixaban (Apixaban 5 Mg Tablet) 5 mg PO BID [facility] Stop: 11/13/23 08:59 Bisacodyl (Bisacodyl 10 Mg Supp) 10 mg MI DAILY PRN PRN Reason: Constipation Stop: 11/12/23 11:01 Calcium/Vitamin D (Calcium 600mg + Vit D 400 Iu Tab) 1 tab PO BID ELIE Stop: 11/12/23 11:01 Last Admin: 10/13/23 13:01 Dose: 1 tab Diphenhydramine HCl (Diphenhydramine Capsule 25 Mg Cap) 25 mg PO Q8H PRN PRN Reason: Itching Stop: 11/12/23 11:01 Docusate Sodium (Docusate Sodium 100 Mg Cap) 100 mg PO BID [facility] Stop: 11/12/23 11:59 Last Admin: 10/13/23 13:01 Dose: 100 mg Hydrochlorothiazide (Hydrochlorothiazide 25 Mg Tab) 25 mg PO QAM [facility] Stop: 11/13/23 08:59 Sodium Chloride (Nss) 1,000 mls @ 100 mls/hr IV .Q10H [facility] Stop: 10/14/23 06:00 Last Admin: 10/13/23 11:20 Dose: 100 mls/hr Cefazolin Sodium (Ancef 1000mg) 1,000 mg in 7.5 mls @ 2.5 mls/min IV Q8H [facility]; Protocol Stop: 10/13/23 23:02 Levothyroxine Sodium (Levothyroxine Sodium 75 Mcg Tablet) 75 mcg PO DAILYBB [facility] Stop: 11/13/23 06:29 Losartan Potassium (Losartan Potassium 50 Mg Tab) 100 mg PO QAM [facility] Stop: 11/12/23 11:59 Last Admin: 10/13/23 13:20 Dose: 100 mg Magnesium Hydroxide (Magnesium Hydroxide Susp 30 Ml Udc) 30 ml PO Q6H PRN PRN Reason: Constipation Stop: 11/12/23 11:01 Magnesium Oxide (Magnesium Oxide 400 Mg Tab) 400 mg PO HS [facility] Stop: 11/12/23 20:59 Meperidine HCl (Meperidine Hcl 25 Mg/Ml Carp/Vial) 25 mg IV Q4 PRN PRN Reason: Pain Stop: 10/27/23 08:53 Metoclopramide HCl (Metoclopramide Hcl Inj 5 Mg/Ml 2 Ml Vial) 10 mg IV Q6H PRN PRN Reason: Nausea And Vomiting Stop: 11/12/23 11:01 Metoprolol Tartrate (Metoprolol Tartrate 100 Mg Tab) 100 mg PO BID ELIE Stop: 11/13/23 08:59 Multivitamins (Multivitamin Tab) 1 tab PO QAM ELIE Stop: 11/12/23 11:59 Last Admin: 10/13/23 13:02 Dose: 1 tab Naloxone HCl (Naloxone Hcl 0.4 Mg/1 Ml Vial/Carp) 0.1 mg IV Q5M PRN PRN Reason: Oversedation/Resp Depression Stop: 11/12/23 11:01 Ondansetron HCl (Ondansetron Inj 2 Mg/Ml 2 Ml Vial) 4 mg IV Q6H PRN PRN Reason: Nausea And Vomiting Stop: 11/12/23 11:01 Potassium Chloride (Potassium Chloride 10 Meq Tabcr) 10 meq PO BID ELIE Stop: 11/12/23 11:59 Last Admin: 10/13/23 13:19 Dose: 10 meq Sennosides (Senna 8.6 Mg Tab) 17.2 mg PO HS ELIE Stop: 11/12/23 20:59 Simvastatin (Simvastatin 20 Mg Tab) 20 mg PO QPM ELIE Stop: 11/12/23 20:59 Spironolactone (Spironolactone 12.5 Mg Tab) 12.5 mg PO HS ELIE Stop: 11/13/23 20:59 Tramadol HCl (Tramadol Hcl 50 Mg Tablet) 50 - 100 mg PO Q4H PRN PRN Reason: Pain & Pre PT Stop: 11/12/23 11:01 Vitamin D (Cholecalciferol 125 Mcg (5,000 Units) Tab) 125 mcg PO HS ELIE Stop: 11/12/23 20:59 PG Care Time/CCT Total # of Minutes Spent Total Time Spent with Patient: Total time spent is greater than 50% in coordination of care (as documented) at patient's floor/unit and/or counseling patient: Coding Level of Care Code 05047 IN/OBS CONSULT LVL 4,60M Diagnoses Hypertension I10 Hyperlipidemia E78.5 Atrial fibrillation I48.91 Hypothyroidism E03.9
[2023-10-13] MEDS: POTASSIUM CHLORIDE 10 MEQ TABCR PO SCH (13:19)
[2023-10-13] MEDS: LOSARTAN POTASSIUM 50 MG TAB PO SCH (13:20)
[2023-10-13] MEDS: ceFAZolin 1000MG 1,000 MG/7.5 ML SYR IV SCH (14:50)
[2023-10-13] MEDS: ONDANSETRON INJ 2 MG/ML 2 ML VIAL IV PRN (15:48)
[2023-10-13] MEDS ORDERED: CHOLECALCIFEROL 125 MCG (5,000 UNITS) TAB PO SCH (21:00)
[2023-10-13] MEDS: CHOLECALCIFEROL 125 MCG (5,000 UNITS) TAB PO SCH (21:01)
[2023-10-13] MEDS: MAGNESIUM OXIDE 400 MG TAB PO SCH (21:02)
[2023-10-13] MEDS: SIMVASTATIN 20 MG TAB PO SCH (21:02)
[2023-10-13] MEDS: SENNA 8.6 MG TAB PO SCH (21:03)
[2023-10-13] MEDS: ALPRAZolam 0.5 MG TABLET PO PRN (21:08)
[2023-10-14] MEDS: LEVOTHYROXINE SODIUM 75 MCG TABLET PO SCH (05:16)
--- NOTE | 2023-10-14 06:50 | Orthopedic Progress Note ---
Date of Service October 14, 2023 Assessment & Plan (1) Arthritis of knee, left: Plan: POD #1 s/p Left TKA pt/ot dvt proph with OMKAR/SCD/resume Elisheila this am plan for d/c home with outpatient PT later today. f/u in the office in 2 weeks as scheduled. Admission and Anticipated Discharge Date Admission Date: October 13, 2023 Subjective POD #1 s/p Left TKA Review of Systems Constitutional: no fever, no chills and no sweats Respiratory: no cough and no dyspnea Cardiovascular: no chest pain and no dyspnea Gastrointestinal: no abdominal pain, no nausea and no vomiting Physical Exam Physical Exam: Vital Signs Temp 36.7 C 10/14/23 03:00 Pulse 84 10/14/23 03:00 Resp 16 10/14/23 03:00 BP 107/74 10/14/23 03:00 Pulse Ox 97 10/14/23 03:00 O2 Del Method Room Air 10/14/23 03:00 O2 Flow Rate 3 10/13/23 09:15 Intake & Output 10/13/23 10/13/23 10/14/23 06:59 18:59 06:59 Intake Total 2217.75 / 4034.416 1816.666 / 4034.41 6 Output Total 430 / 530 100 / 530 Balance 1787.75 / 3504.416 1716.666 / 3504.41 6 Weight 70.1 kg Intake: IV 217.75 / 2034.416 1816.666 / 2034.41 6 Lactated Ringe r's 1,000 ml @ 15 17.75 / 17.75 mls/hr IV .Q24 H ELIE Rx#: [id number] Sodium Chlorid e 0.9% 1,000 ml @ 1816.666 / 1816.66 6 100 mls/hr IV .Q10H ELIE Rx#: [id number] Tranexamic Aci d / 0.7% NaCl 1, 200 / 200 000 mg In 100 ml @ 600 mls/hr IV TODAY@0600 ELIE Rx#:[id number] IV Perioperative 1500 / 1500 Oral 500 / 500 Output: Urine 400 / 400 Estimated Blood Loss 5 / 5 Drain Output 25 / 125 100 / 125 Left Knee 25 / 125 100 / 125 Other: # Unmeasured Voi ds 1 Weight Measureme nt Method Standing Scale Musculoskeletal: Left Leg: NVDI, calf SNT, negative ting sign. DP palpable, able to wiggle toes/ankle movement without difficulty. dressing clean dry and intact. Results & Data Vital Signs (Past 12 Hours) Vital Signs Temp Pulse Resp BP BP Pulse Ox O2 Del Method 10/14/23 03:00 36.7 C 84 16 107/74 97 Room Air 10/13/23 23:00 36.7 C 93 H 16 115/68 96 Room Air 10/13/23 21:19 Room Air 10/13/23 19:00 36.8 C 100 H 16 158/98 H 99 Room Air Laboratory Results Impressions Knee X-Ray 10/13/23 08:53 XR knee LT 1 or 2V routine CLINICAL HISTORY: Postoperative evaluation. COMPARISON: None FINDINGS: Alignment of the total left knee arthroplasty is anatomic. There is no periprosthetic fracture or unexpected radiopaque foreign body. There are skin tess and a surgical drain. IMPRESSION: Expected findings following total left knee arthroplasty. ACT 112: Negative or not required by law. Electronically signed by: Amos Espinoza M.D. 10/13/2023 1:04 PM
[2023-10-14 06:55] LABS: Hematocrit (blood only) 30.9 % (37.0-47.0); Hemoglobin 10.8 g/dl (12.0-16.0); Mean Corpuscular Hemoglobin 30.7 pg (25.0-34.0); Mean Corpuscular Volume 87.8 fL (80.0-100.0); Mean Platelet Volume 10.6 fL (9.4-12.4); Platelet Count 173 K/uL (130-400); RDW Coefficient of Variation 12.2 % (11.5-14.5); RDW Standard Deviation 39.3 fL (36.4-46.3); Red Blood Count 3.52 M/uL (4.20-5.40); White Blood Count 15.96 K/ul (4.8-10.8)
--- NOTE | 2023-10-14 06:55 | Discharge Summary ---
Date of Service date of discharge: October 14, 2023 date of admission: 10-13-23 Admission HPI Per Admitting Provider Andie is a 73-year-old female who presented for preop evaluation prior to upcoming left total knee replacement and right knee injection. She has longstanding history of left knee pain and is failed conservative measures including cortisone injection as well as viscosupplementation. Her pain is now affecting her daily activities after discussing further care like to proceed with a left total knee replacement. She also has a history of right knee replacement approximately 6 years ago and has had pain located to the pes bursa and would like to proceed with a cortisone injection to the right knee pes bursa. She is unable to take anti-inflammatories secondary to anticoagulation use Principal Diagnosis left knee arthritis Discharge Exam Vital Signs Temp Pulse Pulse Resp BP BP Pulse Ox 10/14/23 03:00 36.7 C 84 16 107/74 97 10/13/23 23:00 36.7 C 93 H 16 115/68 96 10/13/23 21:19 10/13/23 19:00 36.8 C 100 H 16 158/98 H 99 10/13/23 14:31 36.5 C 89 16 124/83 96 10/13/23 13:06 10/13/23 12:58 36.6 C 90 16 113/71 94 10/13/23 12:09 36.7 C 90 17 132/86 93 10/13/23 11:01 36.6 C 89 16 136/84 92 10/13/23 10:35 36.7 C 91 H 17 131/88 90 10/13/23 10:10 36.5 C 90 16 155/87 H 10/13/23 09:30 36.5 C 93 H 16 141/85 H 97 10/13/23 09:25 36.5 C 88 14 135/90 99 10/13/23 09:15 98 H 14 141/91 H 96 10/13/23 09:05 97 H 15 148/83 H 94 10/13/23 08:55 97 H 15 141/94 H 98 10/13/23 08:49 36.3 C L 86 12 144/72 H 94 O2 Del Method O2 Flow Rate 10/14/23 03:00 Room Air 10/13/23 23:00 Room Air 10/13/23 21:19 Room Air 10/13/23 19:00 Room Air 10/13/23 14:31 Room Air 10/13/23 13:06 Room Air 10/13/23 12:58 Room Air 10/13/23 12:09 Room Air 10/13/23 11:01 Room Air 10/13/23 10:35 Room Air 10/13/23 10:10 Room Air 10/13/23 09:30 Room Air 10/13/23 09:25 Room Air 10/13/23 09:15 Oxymask 3 10/13/23 09:05 Oxymask 3 10/13/23 08:55 Oxymask 5 10/13/23 08:49 Oxymask 5 Intake and Output 10/13/23 10/13/23 10/14/23 14:59 22:59 06:59 Intake Total 2217.75 / 4034.416 973.333 / 4034.416 843.333 / 4034.416 Output Total 30 / 530 500 / 530 Balance 2187.75 / 3504.416 473.333 / 3504.416 843.333 / 3504.416 Intake: IV 217.75 / 2034.416 973.333 / 2034.416 843.333 / 2034.416 Lactated Ringer's 1,000 ml @ 15 17.75 / 17.75 mls/hr IV .Q24H ELIE Rx#: [id number] Sodium Chloride 0.9% 1,000 ml @ 973.333 / 1816.666 843.333 / 1816.666 100 mls/hr IV .Q10H ELIE Rx#: [id number] Tranexamic Acid / 0.7% NaCl 1, 200 / 200 000 mg In 100 ml @ 600 mls/hr IV TODAY@0600 ELIE Rx#:[id number] IV Perioperative 1500 / 1500 Oral 500 / 500 Output: Urine 400 / 400 Estimated Blood Loss 5 / 5 Drain Output 25 / 125 100 / 125 Left Knee 25 / 125 100 / 125 Other: # Unmeasured Voids 1 1 Musculoskeletal left knee: NVDI, calf SNT, negative ting sign. DP palpable, able to wiggle toes/ankle movement without difficulty. MERCED dressing clean dry and intact. Discharge Data Allergies Allergy/AdvReac Type Severity Reaction Status Date / Time fentanyl Allergy Intermediate DEEP Verified 10/13/23 05:40 sedation, severe difficulty waking after receiving med adhesive Allergy Mild band Verified 10/13/23 05:40 aids-rash and blistering morphine AdvReac Intermediate nausea and Verified 10/13/23 05:40 vomiting promethazine [From Phenergan] AdvReac Intermediate drowsiness Verified 10/13/23 05:40 hydrocodone AdvReac Mild nausea and Verified 10/13/23 05:40 vomiting oxycodone AdvReac Mild nausea and Verified 10/13/23 05:40 vomiting Consultations 10/13/23 11:02 Consult Hospitalist Routine Procedures Performed Operation Date: 10/13/23 07:00 Actual Procedures p Left Total Knee Arthroplasty,(Left) - Baldev Gorman DO s Right Knee Pes Anserine Cortisone Injection(Right) - Baldev Gorman DO Ordered Studies 10/13/23 05:00 US - OR guided needle placemen Routine Total Time Total Time Spent Total Time Spent (In Minutes): 20 Discharge Plan Discharge Items Patient Disposition: Home - Self-Care Reason For Visit: Left Knee Osteoarthritis, Right Knee Osteoarthriti Discharge Diagnosis: LEFT KNEE ARTHRITIS Activity: Per Instructions section Non-emergency contact: Surgeon Call non-emergency contact if: you have any medication questions, your temperature is above 101, your wound has increased redness, your wound has increased drainage and your wound pain has increased Follow-up/Referrals: Jesus Prince D.OAlcides [Primary Care Provider] - Diet: Regular Addtl Attending Provider Instructions: ACTIVITY RECOMMENDATIONS: SELF CARE INSTRUCTIONS AFTER TOTAL KNEE REPLACEMENT A. You may need to continue a physical therapy program after discharge from the hospital. There are several options available to you. Your doctor will assist you in selecting the best one for you. 1. An out-patient facility 2 to 3 times a week for therapy or home therapy. 2. Continue working on all exercises taught to you in the hospital. Your goals should be to increase bending of your knee to 90 degrees and beyond and to fully straighten your knee. B. You may progress at your own pace from walking with a walker or crutches to a cane; then to no assistive devices. C. Make walking a part of your daily routine. Be up as much as comfortable with rest periods throughout the day. Rest with leg elevation is very important. Use the ice wrap frequently for the first 3-4 weeks. D. There are no restrictions on activities. You may ride in a car, shop, participate in cobbler upper and all social activities. E. Wear the long elastic stockings (OMKAR hose) 20 hours a day for 2 weeks after surgery. They can be removed several times a day for laundering and for a bath. F. You may shower, no tub baths until cleared by your doctor. SPECIAL CARE INSTRUCTIONS: VERY IMPORTANT TO READ AND REVIEW A. There are a few signs you need to watch for after you are home. Call [facility] if you notice any of the followin. Increased severe knee pain. Some pain is expected especially when you exercise. 2. Increased swelling in your leg or knee; pain or swelling of the calf muscle in either lower leg. 3. Any fluid drainage from the incision. 4. Shortness of breath or chest pain. B. Please call [facility] at if you have any concerns or questions about your operation or recovery. The doctor or his nurse will return your call promptly. C. You must take antibiotics before dental work, bladder, bowel or other surgery. Your doctor will provide you with a permanent care to carry describing this precaution. IMPORTANT: * REMEMBER TO TAKE ASPIRIN, 81 MG, TWICE DAILY FOR 4 WEEKS UNLESS OTHERWISE DIRECTED. THIS IS YOUR BLOOD THINNER. * HIGH RISK PATIENTS MAY BE PRESCRIBED A STRONGER BLOOD THINNER. THIS WILL BE PROVIDED AT DISCHARGE. * CALL IF INCREASED PAIN, REDNESS, DRAINAGE OR FEVER GREATER THAT 101. * WEAR OMKAR HOSE 20 HOURS PER DAY FOR 2 WEEKS. MERCED Dressing- This is a large suction dressing covering your incision. This will help pull any excess drainage from the wound and allow your incision to heal properly. You may shower with this if you can keep the unit outside of the shower. If any bleeding or leakage is noted please call your doctor's office. This will remain on your incision for 7 days and then should be removed. This can be done yourself or by the home nursing staff if applicable. The entire unit is disposable once removed. Once removed, keep incision clean and dry. If redness or drainage is noted, please call your surgeon. FOLLOW UP VISIT: If appointment is not already scheduled: Please call [facility] to make a follow-up appointment for 2 weeks after your surgery at . Stand-Alone Forms: My [facility], Smoking Cessation Medications and DC Order Prescriptions: New tramadol 50 mg tablet 50 - 100 mg PO Q6H PRN (Reason: pain) Qty: 30 0RF Rx Instructions: ongoing therapy, supervising dr kylah gorman. max 5 tabs in 24 hours. date of surgery 10/13/23 cefadroxil 500 mg capsule 500 mg PO BID 14 Days Qty: 28 0RF docusate sodium 100 mg Capsule 100 mg PO BID Qty: 20 0RF ondansetron 8 mg tablet,disintegrating 8 mg PO BID 5 Days Qty: 10 0RF Continued potassium chloride 8 mEq Capsule, Extended Release 8 meq PO BID Qty: 0 amoxicillin 500 mg Tablet 500 mg PO UD PRN (Reason: DENTAL WORK) 10 Days Qty: 0 levothyroxine 75 mcg Tablet 75 mcg PO QAM 90 Days Qty: 90 alprazolam [Xanax] 0.5 mg Tablet 0.5 - 1 mg PO HS PRN (Reason: Insomnia) Qty: 0 simvastatin 20 mg Tablet 20 mg PO QPM Qty: 0 hydrochlorothiazide 25 mg Tablet 1 tab PO QAM Qty: 0 losartan 100 mg Tablet 100 mg PO QAM Qty: 0 calcium citrate-vitamin D3 [Citracal Regular] 250 mg calcium- 200 unit Tablet 2 tab PO BID Qty: 0 cholecalciferol (vitamin D3) [Vitamin D3] 5,000 unit Tablet 5,000 unit PO HS 90 Days Qty: 0 [place] [employer] 1.5 billion cell Capsule 1 cap PO HS Qty: 0 magnesium oxide 400 mg Capsule 400 mg PO HS Qty: 0 ondansetron HCl [Zofran] 4 mg Tablet 8 mg PO UD PRN (Reason: Nausea And Vomiting) Qty: 20 0RF Centrum Silver Tablet 1 tab PO HS nebivolol [Bystolic] 20 mg Tablet 20 mg PO QAM acetaminophen [Pain Reliever (acetaminophen)] 500 mg tablet 1,000 mg PO Q6 PRN (Reason: Pain) nitrofurantoin macrocrystal [Macrodantin] 50 mg Capsule 50 mg PO QAM Rx Instructions: must administer with a meal/food spironolactone 25 mg Tablet 12.5 mg PO HS Eliquis 5 mg Tablet 5 mg PO BID Magnesium Breakthrough 1 tab PO HS Discharge Orders: Discharge Order (Routine); Ordered 10/14/23 Ordered By: Burt Esquivel Admission Data Admit Date/Time: 10/13/23 08:53 Attending Provider: Baldev Gorman Admit Provider: Baldev Gorman Primary Care Provider: Jesus Prince Other Providers: Andreas Love; Fabi Isaac; Andreas Zhou; Kunal Castaneda; Baldev Castro; Markel Mendoza; Irina Ambrose; Che Espinoza; Queenie Guerra; Tim Jiang; Harry Burnham; Kendra Moya; Glen Moreira; Andreas Bolton; Juan Francisco Hernandez; Cori Lopez; Shira Key; Pamela Sainz; Uri Arreaga; Lisa Hernandez.; Saqib Schuster; Johnny Jackson; Jackelin Lo; Diana Higgins; Megan Sahu; Ramakrishna Zaldivar; Nicolás Mcintosh; Kunal Ortega; Baldev Mccoy; Luzma Song
[2023-10-14 07:10] LABS: BUN Creatinine Ratio 26.5 (10-20); Calcium 8.9 mg/dl (8.6-10.3); Creatinine Clr Calc Pharmacy 49.3 ml/min; Est GFR (African American) 65.4 ml/min; Est GFR (Non-African American) 56.4 ml/min; Potassium 4.2 mmol/L (3.5-5.1)
--- NOTE | 2023-10-14 07:40 | Electrocardiogram Report ---
Test Reason : Blood Pressure : / mmHG Vent. Rate : 091 BPM Atrial Rate : 182 BPM P-R Int : 000 ms QRS Dur : 082 ms QT Int : 362 ms P-R-T Axes : 000 031 015 degrees QTc Int : 445 ms Atrial tachycardia with 2:1 A-V conduction with occasional Premature ventricular complexes Abnormal ECG No previous ECGs available Confirmed by Jorge Adams ([id number]) on 10/14/2023 7:40:39 AM Referred By: Baldev Delgado Confirmed By:Jorge Adams
[2023-10-14] MEDS: APIXABAN 5 MG TABLET PO SCH (08:18)
[2023-10-14] MEDS: METOPROLOL TARTRATE 100 MG TAB PO SCH (08:18)
[2023-10-14] MEDS ORDERED: hydroCHLOROthiazide 25 MG TAB PO SCH (09:00)
--- NOTE | 2023-10-14 09:47 | Communication Note ---
Date of Service: October 14, 2023 Stopped by to see patient this morning but already discharge/plan in place by primary this morning. Labs stable, WBC elevation suspected from steroids w/ surgery, afebrile. Labs stable, na 135 Hgb 14.1--> 10.8, acute blood loss anemia from surgery as well as dilutional aspect from IVF No CP/SOB, lightheaded/dizziness or other symptoms. Feeling well/stable for dc Held AM HCTZ/Losartan and can resume in AM 6/1 Please reach out with any questions/concerns.
[2023-10-14] MEDS ORDERED: SPIRONOLACTONE 12.5 MG TAB PO SCH (21:00)
--- NOTE | 2023-10-15 11:46 | Coding Query ---
DOCUMENTATION NEEDED Please provide documentation of the right knee injection that was performed during the left knee replacement: DESCRIPTION OF PROCEDURE: Thank you for your assistance, Kate Hollingsworth - Dry Wall [employer]ator [employer]
== END 2023-10-14 10:36 | disposition home health service (06) ==
LOC: 3E 05:05 → ASU 05:05